=== PATIENT | female | born 1955 | race Caucasian/White ===

== ENCOUNTER → 2017-01-17 | Outpatient (CLI) | payer OTHER ==
--- NOTE | 2017-01-17 15:40 | RADIOLOGY REPORT (SQ) ---
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 NUMBER OF VIEWS: Three view. TECHNIQUE: AP and lateral views of the lumbar spine with flexion and extension. LIMITATIONS: None. FINDINGS: MINERALIZATION: Normal. SEGMENTATION: Normal. No transitional anatomy. ALIGNMENT: 8 mm anterolisthesis of L4 on L5. FLEXION/EXTENSION: No instability. VERTEBRAE: Maintained height. No fracture or worrisome bone lesion. DISCS: Disc space narrowing at L4-L5. POSTERIOR ELEMENTS: Pedicles and facets are intact. No pars defect or posterior arch defects. HARDWARE: None in the spine. OTHER: No other significant finding. IMPRESSION: GRADE 1 ANTEROLISTHESIS OF L 4 ON L5 WITH DISC SPACE NARROWING. NO INSTABILITY ON FLEXION/EXTENSION. TECHNICAL DOCUMENTATION: JOB ID: [id number] [email or web address]- All Rights Reserved
--- NOTE | 2017-01-17 15:40 | RADIOLOGY REPORT (SQ) ---
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 NUMBER OF VIEWS: Three view. TECHNIQUE: AP and lateral views of the lumbar spine with flexion and extension. LIMITATIONS: None. FINDINGS: MINERALIZATION: Normal. SEGMENTATION: Normal. No transitional anatomy. ALIGNMENT: 8 mm anterolisthesis of L4 on L5. FLEXION/EXTENSION: No instability. VERTEBRAE: Maintained height. No fracture or worrisome bone lesion. DISCS: Disc space narrowing at L4-L5. POSTERIOR ELEMENTS: Pedicles and facets are intact. No pars defect or posterior arch defects. HARDWARE: None in the spine. OTHER: No other significant finding. IMPRESSION: GRADE 1 ANTEROLISTHESIS OF L 4 ON L5 WITH DISC SPACE NARROWING. NO INSTABILITY ON FLEXION/EXTENSION. TECHNICAL DOCUMENTATION: JOB ID: [id number] [employer]- All Rights Reserved
--- NOTE | 2017-01-17 15:51 | RADIOLOGY REPORT (SQ) ---
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 TECHNIQUE: Axial images acquired through the lumbar spine without intravenous contrast. Images revi ewed with lung, soft tissue and bone windows. Reconstructed coronal and sagittal MPR images reviewed . All images stored on PACS. All CT scanners at this facility use dose modulation, iterative reconstruction, and/or weight based d osing when appropriate to reduce radiation dose to as low as reasonably achievable (ALARA). [facility]: Dose Right [facility]: CareDose [facility]: Dose Right [facility]: Teradose 4D [facility]: [employer] RADIATION DOSE: Up-to-date CT equipment and radiation dose reduction techniques were employed. CTDIv ol: 9.4 mGy. DLP: 246 mGy-cm. mGy. LIMITATIONS: None. FINDINGS: SEGMENTATION: Normal. No transitional anatomy. ALIGNMENT: 6 mm anterolisthesis of L4 on L5. VERTEBRAL BODIES: Prominent Schmorl's node involving the superior endplate of L3. Otherwise intact. DISCS: Disc space narrowing at L4-L5 No significant protrusions. Study limited by lack of intratheca l contrast. PEDICLES, TRANSVERSE PROCESSES: No fractures. No dislocation. No acute findings. FACETS, POSTERIOR ELEMENTS: Laminectomy at L4-L5 and L5-S1. Prominent facet arthropathy at these lev els. HARDWARE: None in the spine. VISUALIZED RIBS: No fractures. SOFT TISSUES: No significant or acute finding in adjacent soft tissues. OTHER: No other significant finding. IMPRESSION: CHRONIC CHANGES AND SURGICAL CHANGES DESCRIBED ABOVE. NO APPARENT ACUTE FINDINGS. TECHNICAL DOCUMENTATION: JOB ID: [id number] Quality ID # [id number]: Final reports with documentation of one or more dose reduction techniques (e.g., Au tomated exposure control, adjustment of the mA and/or kV according to patient size, use of iterative reconstruction technique) 2010 [employer]- All Rights Reserved
== END ==
LOC: RAD 13:58
PROVIDERS: ATTEND Specialist
DX: M51.16 Intervertebral disc disorders with radiculopathy, lumbar region (principal)
CPT/HCPCS: 72020; 72120; 72131